=== PATIENT | female | born 1995 | race Two or more races ===

== ENCOUNTER 2021-04-13 11:30 | Emergency (ER) | payer OTHER ==
[~2021-04-13] VITALS: Ht 165.1 cm; Wt 65.8 kg
== END 2021-04-13 14:37 | disposition home or self-care (01) ==
LOC: ER 11:30
DX: N83.292 Other ovarian cyst, left side (principal); R10.2 Pelvic and perineal pain

== ENCOUNTER 2021-07-03 17:54 | Emergency (ER) | payer OTHER ==
[~2021-07-03] VITALS: Ht 167.6 cm; Wt 71.2 kg
== END 2021-07-03 23:16 | disposition home or self-care (01) ==
LOC: ER 17:54
DX: R10.2 Pelvic and perineal pain (principal); Z3A.14 14 weeks gestation of pregnancy

== ENCOUNTER 2021-12-26 05:05 | Inpatient (IN) | payer OTHER ==
[~2021-12-26] VITALS: Ht 167.6 cm; Wt 88.5 kg
[2021-12-26] MEDS ORDERED: PRENATAL TABLE1 EAC1 PO (06:00)
== END 2021-12-30 13:42 | disposition home or self-care (01) | DRG 785 ==
LOC: OB/GYN 05:05 → LDR 05:05 → OB/GYN 12-27 22:11
PROVIDERS: ADMIT Obstetrics & Gynecology Obstetrics; ATTEND Obstetrics & Gynecology Obstetrics
PROC: 4A1HXCZ Monitoring of Products of Conception, Cardiac Rate, External Approach (ICD-10-PCS; 2021-12-26)
PROC: 0UB70ZZ Excision of Bilateral Fallopian Tubes, Open Approach (ICD-10-PCS; 2021-12-27)
PROC: 10D00Z1 Extraction of Products of Conception, Low, Open Approach (ICD-10-PCS; principal; 2021-12-27 14:45)
DX: O76 Abnormality in fetal heart rate and rhythm complicating labor and delivery (principal); Z3A.39 39 weeks gestation of pregnancy; Z37.0 Single live birth; Z30.2 Encounter for sterilization; Z20.822 Contact with and (suspected) exposure to COVID-19